=== PATIENT | male | born 1965 | race African-American/Black ===

== ENCOUNTER 2016-06-06 11:35 | Emergency (ER) | payer BC, OTHER ==
--- NOTE | 2016-06-06 11:46 | ER Document Report ---
ED Medical Screen (RME) - General Stated Complaint: ABNORMAL LABS Mode of Arrival: Ambulatory Information source: Patient Notes: Patient's primary doctor sent him here due to abnormal PT/INR level. Patient does take Coumadin. Patient states his INR was 8. Patient does report some bleeding from his gingiva. hx: a fib TRAVEL OUTSIDE OF THE [place] IN LAST 30 DAYS: No - Related Data Allergies/Adverse Reactions: No Known Allergies Allergy (Verified 06/06/16 11:43) Past Medical History - Past Medical History Cardiac Medical History: Reports: Hx Atrial Fibrillation, Hx Congestive Heart Failure, Hx Hypercholesterolemia, Hx Hypertension Pulmonary Medical History: Denies: Hx Tuberculosis Psychiatric Medical History: Denies: Hx Depression Past Surgical History: Reports: Hx Internal Defibrillator, Hx Pacemaker - Immunizations Hx Diphtheria, Pertussis, Tetanus Vaccination: No Physical Exam - HEENT Teeth diagram: 1 - active bleeding
[2016-06-06 12:17] LABS: ABSOLUTE BASOPHILS # (AUTO) 0.1 10^3/uL (0.0-0.2); ABSOLUTE EOSINOPHILS # (AUTO) 0.3 10^3/uL (0.0-0.6); ABSOLUTE LYMPHOCYTES (AUTO) 0.8 10^3/uL (0.5-4.7); ABSOLUTE MONOCYTES (AUTO) 1.1 10^3/uL (0.1-1.4); ABSOLUTE NEUT (AUTO) 5.7 10^3/uL (1.7-8.2); BASOPHILS % (AUTO) 1.1 % (0-2); EOSINOPHILS % (AUTO) 3.3 % (0-6); HEMATOCRIT 38.6 % (37.9-51.0); HEMOGLOBIN 12.7 g/dL (13.5-17.0); HGB HCT DIFFERENCE -0.5; LYMPHOCYTES % (AUTO) 10.6 % (13-45); MEAN CORPUSCULAR HEMOGLOBIN 23.5 pg (27.0-33.4); MEAN CORPUSCULAR HGB CONC 32.9 g/dL (32.0-36.0); MEAN CORPUSCULAR VOLUME 71 fl (80-97); MONOCYTES % (AUTO) 13.2 % (3-13); RED BLOOD COUNT 5.41 10^6/uL (4.35-5.55); RED CELL DISTRIBUTION WIDTH 32.7 % (11.5-14.0); SEGMENTED NEUTROPHILS % (AUTO) 71.8 % (42-78); WHITE BLOOD COUNT 7.9 10^3/uL (4.0-10.5)
[2016-06-06] MEDS ORDERED: TRANEXAMIC ACID INJ/PF 1,000 MG/10 ML SDV IV ONE (12:28)
[2016-06-06 12:37] LABS: ALANINE AMINOTRANSFERASE 54 U/L (21-72); ALBUMIN 4.8 g/dL (3.5-5.0); ALKALINE PHOSPHATASE 79 U/L (38-126); ASPARTATE AMINO TRANSFERASE 50 U/L (17-59); BILIRUBIN,TOTAL 0.8 mg/dL (0.2-1.3); CALCIUM 9.8 mg/dL (8.4-10.2); GLUCOSE 123 mg/dL (75-110); TOTAL PROTEIN 8.5 g/dL (6.3-8.2)
[2016-06-06 12:48] LABS: BLOOD UREA NITROGEN 136 mg/dL (7-20)
[2016-06-06 12:53] LABS: ACANTHOCYTES SLIGHT; ANISOCYTOSIS 4+; HYPOCHROMASIA 1+; MICROCYTOSIS 2+; OVALOCYTES 2+; POIKILOCYTOSIS 3+; SCHISTOCYTES 1+; TEAR DROP CELLS SLIGHT; TOXIC GRANULATION SLIGHT; TOXIC VACUOLATION PRESENT
[2016-06-06 12:55] LABS: CARBON DIOXIDE 22 mmol/L (22-30); CHLORIDE 94 mmol/L (98-107); POTASSIUM 3.8 mmol/L (3.6-5.0); SODIUM 135.9 mmol/L (137-145)
[2016-06-06 13:00] LABS: PROTHROMBIN TIME 69.5 SEC (11.4-15.4)
[2016-06-06 13:02] LABS: ANION GAP 20 (5-19)
--- NOTE | 2016-06-06 13:26 | ER Document Report ---
ED General - General Chief Complaint: Abnormal Lab Results Stated Complaint: ABNORMAL LABS Mode of Arrival: Ambulatory Notes: The patient is a 50-year-old male, past medical history ABen umaña (on Coumadin), AICD, presents from his kitchen stewardess office after he was found to have gingival bleeding and an INR of 8. His kitchen stewardess, Dr. Bear, told him to not take his Coumadin until he sees him in 3 days in the clinic. He is taking his Coumadin as prescribed. He denies any blood in stool, melena, hematemesis, lightheadedness, chest pain, shortness of breath, nausea or vomiting. TRAVEL OUTSIDE OF THE [place] IN LAST 30 DAYS: No - Related Data Allergies/Adverse Reactions: No Known Allergies Allergy (Verified 06/06/16 11:43) Past Medical History - General Information source: Patient - Social History Smoking Status: Never Smoker Chew tobacco use (# tins/day): No Frequency of alcohol use: None Drug Abuse: None Family History: CAD - In mother and grandmother in their 60s Patient has suicidal ideation: No Patient has homicidal ideation: No - Past Medical History Cardiac Medical History: Reports: Hx Atrial Fibrillation, Hx Congestive Heart Failure, Hx Hypercholesterolemia, Hx Hypertension Pulmonary Medical History: Denies: Hx Tuberculosis Renal/ Medical History: Denies: Hx Peritoneal Dialysis Psychiatric Medical History: Denies: Hx Depression Past Surgical History: Reports: Hx Internal Defibrillator, Hx Pacemaker - Immunizations Hx Diphtheria, Pertussis, Tetanus Vaccination: No Review of Systems - Review of Systems Notes: REVIEW OF SYSTEMS: CONSTITUTIONAL: -fevers, -chills EENT: +gingival bleeding, -eye pain, -difficulty swallowing, -nasal congestion CARDIOVASCULAR:-chest pain, -syncope. RESPIRATORY: -cough, -SOB GASTROINTESTINAL: -abdominal pain, - nausea, -vomiting, -diarrhea, -hematemesis , -melana, -hematochezia GENITOURINARY: -dysuria, -hematuria MUSCULOSKELETAL: -back pain, -neck pain SKIN: -rash or skin lesions. HEMATOLOGIC: -easy bruising or bleeding. LYMPHATIC: -swollen, enlarged glands. NEUROLOGICAL: -altered mental status or loss of consciousness, -headache, - neurologic symptoms PSYCHIATRIC: -anxiety, -depression. ALL OTHER SYSTEMS REVIEWED AND NEGATIVE. Physical Exam - Vital signs Vitals: Temp Pulse Resp BP Pulse Ox 97.8 F 77 18 105/79 99 06/06/16 11:45 06/06/16 11:45 06/06/16 11:45 06/06/16 11:45 06/06/16 11:45 - Notes Notes: PHYSICAL EXAMINATION: GENERAL: Well-appearing, well-nourished and in no acute distress. HEAD: Atraumatic, normocephalic. EYES: Pupils equal round and reactive to light, extraocular movements intact, sclera anicteric, conjunctiva are normal. ENT: oozing out of gingiva from back upper molars, nares patent, oropharynx clear without exudates. Moist mucous membranes. NECK: Normal range of motion, supple without lymphadenopathy LUNGS: Breath sounds clear to auscultation bilaterally and equal. No wheezes rales or rhonchi. HEART: Regular rate and rhythm without murmurs ABDOMEN: Soft, nontender, normoactive bowel sounds. No guarding, no rebound. No masses appreciated. EXTREMITIES: Normal range of motion, no pitting or edema. No cyanosis. NEUROLOGICAL: Cranial nerves grossly intact. Normal speech, normal gait. Normal sensory, motor, and reflex exams. PSYCH: Normal mood, normal affect. SKIN: Warm, Dry, normal turgor, no rashes or lesions noted. Course - Re-evaluation Re-evalutation: Patient has no signs of GI bleeding at this time, including the absence of melena or hematochezia. Hemoglobin is normal. INR is 7.8. He is hemodynamically stable at this time. Gingiva bleeding stopped with topical TXA and teabag. No indication for emergent reversal at this time. Instructed patient to hold his Coumadin doses for 3 days and follow-up with his kitchen stewardess, Dr. Bear, as instructed. 06/06/16 14:[address] Schroeder and he is requesting Vitamin K. [employer] guidelines recommend holding Coumadin and restarting at a lower dose once INR is therapeutic for INR between 5-9 and no significant bleeding.. Oral Vitamin K 1-2.5 mg may be considered. Since the patient's PMD is requesting vitamin K, will provide a dose of oral vitamin K and follow-up at his kitchen stewardess and primary care physician. - Vital Signs Vital signs: Temp Pulse Resp BP Pulse Ox 97.8 F 77 18 105/79 99 02/24/17 11:45 06/06/16 11:45 06/06/16 11:45 06/06/16 11:45 06/06/16 11:45 - Laboratory Result Diagrams: 06/06/16 12:00 06/06/16 12:00 Laboratory results interpreted by me: 06/06/16 06/06/16 06/06/16 12:00 12:00 12:00 Hgb 12.7 L MCV 71 L MCH 23.5 L RDW 32.7 H Lymphocytes % 10.6 L Monocytes % 13.2 H PT 69.5 H* INR 7.75 H* Sodium 135.9 L Chloride 94 L Anion Gap 20 H BUN 136 H Creatinine 3.40 H Est GFR ( Amer) 23 L Est GFR (Non-Af Amer) 19 L Glucose 123 H Total Protein 8.5 H Discharge - Discharge Clinical Impression: Gingival bleeding, Elevated INR Condition: Stable Disposition: HOME, SELF-CARE Additional Instructions: Do not take Coumadin until you're seen by your kitchen stewardess on Thursday. Return to the ER if you notice increased bleeding from her gums or you have any signs of GI bleed, including red or black stool. Referrals: RUFINO AL MD [Primary Care Provider] - Follow up as needed
[2016-06-06] MEDS ORDERED: PHYTONADIONE 5 MG TABLET PO ONE (14:13)
[2016-06-06 15:55] VITALS: BP 106/75
== END 2016-06-06 15:53 | disposition home or self-care (01) ==
LOC: ER 11:35
DX: K06.8 Other specified disorders of gingiva and edentulous alveolar ridge (principal); I48.91 Unspecified atrial fibrillation; Z79.01 Long term (current) use of anticoagulants; Z95.810 Presence of automatic (implantable) cardiac defibrillator; I10 Essential (primary) hypertension
CPT/HCPCS: 99283; 96374; 36415; 85025; 85610; 80053; J3490 ×2

== ENCOUNTER 2016-12-22 08:10 | Emergency (ER) | payer OTHER, MEDICAID ==
--- NOTE | 2016-12-22 09:20 | ER Document Report ---
ED General - General Chief Complaint: Leg Swelling Stated Complaint: LEFT LEG PAIN Time Seen by Provider: 12/22/16 09:07 TRAVEL OUTSIDE OF THE [place] IN LAST 30 DAYS: No - HPI Notes: This is a 51-year-old male with history of congestive heart failure who presents with multiple complaints worsening over the last 6 days. He states he has exacerbations of his CHF about every 6 months with the last one being treated at [facility], they had stopped his metolazone and his carvedilol. He has noticed increased swelling of his legs with a weight gain of 10-12 pounds over the last few weeks. Denies dietary change. He has been taking his Lasix 60 mg daily. He is noticing fairly severe fatigue as well as shortness of breath particularly with exertion. He is not having any noticeable chest discomfort. Denies fever cough or cold symptoms otherwise. He sees Dr. Bear, his summer law associate from [facility]. He has an appointment in 2 days but symptoms have worsened too much. - Related Data Allergies/Adverse Reactions: No Known Allergies Allergy (Verified 12/22/16 08:17) Home Medications: Current Home Medications Amiodarone HCl [Cordarone 200 mg Tablet] 200 mg PO DAILY 12/22/16 [History] Furosemide [Lasix 40 mg Tablet] 60 mg PO QAM 12/22/16 [History] Mag Oxide/D3/Turmeric Rt Xt [Magnesium-Vit D3-Turmeric Cap] 400 mg PO DAILY 02/27 [History] Simvastatin [Simvastatin] 20 mg PO DAILY 12/22/16 [History] Warfarin Sodium [Warfarin Sodium] 3 mg PO DAILY 12/22/16 [History] Past Medical History - Social History Smoking Status: Never Smoker Chew tobacco use (# tins/day): No Frequency of alcohol use: None Drug Abuse: None Family History: CAD - In mother and grandmother in their 60s - Past Medical History Cardiac Medical History: Reports: Hx Atrial Fibrillation, Hx Congestive Heart Failure, Hx Hypercholesterolemia, Hx Hypertension Pulmonary Medical History: Denies: Hx Tuberculosis Renal/ Medical History: Denies: Hx Peritoneal Dialysis Psychiatric Medical History: Denies: Hx Depression Past Surgical History: Reports: Hx Abdominal Surgery - colon polyp removal, Hx Cardiac Catheterization, Hx Internal Defibrillator, Hx Pacemaker - Immunizations Hx Diphtheria, Pertussis, Tetanus Vaccination: No Review of Systems - Review of Systems -: Yes All other systems reviewed and negative Physical Exam - Vital signs Vitals: Temp Pulse Resp BP Pulse Ox 97.6 F 82 16 92/68 L 97 12/22/16 08:11 12/22/16 08:11 12/22/16 08:11 12/22/16 08:11 12/22/16 08:11 Notes: See nurse's note, hypotension noted. - Notes Notes: Physical Exam: GENERAL: VS as per nursing doc. Well-appearing, well-nourished and in no acute distress. HEAD: Atraumatic, normocephalic. EYES: Pupils equal round and reactive to light, extraocular movements intact, sclera anicteric, no conjunctival injection or discharge. ENT: Nares patent, oropharynx clear without exudates. Moist mucous membranes. NECK: Normal range of motion, supple without lymphadenopathy. LUNGS: Breath sounds clear to auscultation bilaterally and equal. No wheezes rales or rhonchi. HEART: Regular rate and rhythm with 3/6 systolic murmur. Equal peripheral pulses. ABDOMEN: Soft, non-tender. No pulsatile mass. EXTREMITIES: Normal range of motion. No calf tenderness. 3+ edema bilaterally. NEUROLOGICAL: Cranial nerves grossly intact. Normal speech. Normal sensory and motor exams. No gross cerebellar abnormalities. PSYCH: Normal mood, normal affect. SKIN: Warm, dry, no cyanosis, no splinter hemorrhages. Cap refill < 2 sec. Course - Re-evaluation Re-evalutation: 12/22/16 10:48 Awaiting the PT/INR which was drawn as it was abnormally high. Creatinine 3.21 appears reasonably good when compared to his creatinine of 3.4 earlier in the year. Chest x-ray showed pulmonary vascular congestion but no yaya CHF. 12/22/16 12:[address] Bear. He will see the patient in 2 days and will discuss with him when to reinitiate the Coumadin. As well we will increase his Lasix from 60 mg to 80 mg daily. Discussed this with patient and he is comfortable with this and knows warning signs to watch for. - Vital Signs Vital signs: Temp Pulse Resp BP Pulse Ox 98.2 F 82 17 96/74 L 97 12/22/16 10:14 12/22/16 08:11 12/22/16 12:13 12/22/16 12:13 12/22/16 12:13 - Laboratory Result Diagrams: 12/22/16 08:29 12/22/16 08:29 Laboratory results interpreted by me: 12/22/16 12/22/16 12/22/16 08:29 08:29 08:29 Hgb 10.0 L Hct 32.5 L MCV 74 L MCH 22.9 L MCHC 30.9 L RDW 19.9 H Lymphocytes % (Manual) 11 L PT INR Sodium 135.7 L Carbon Dioxide 20 L BUN 107 H Creatinine 3.21 H Est GFR ( Amer) 25 L Est GFR (Non-Af Amer) 20 L Glucose 111 H Total Bilirubin 2.2 H Direct Bilirubin 1.4 H NT-Pro-B Natriuret Pep [id number] H 12/22/16 10:25 Hgb Hct MCV MCH MCHC RDW Lymphocytes % (Manual) PT 60.0 H* INR 6.60 H* Sodium Carbon Dioxide BUN Creatinine Est GFR ( Amer) Est GFR (Non-Af Amer) Glucose Total Bilirubin Direct Bilirubin NT-Pro-B Natriuret Pep - EKG Interpretation by Me Additional EKG results interpreted by me: 12/22/16 11:23 EKG shows an AV dual paced rhythm rate of 74. Nonspecific ST abnormalities. Probable left atrial enlargement. Discharge - Discharge Clinical Impression: Congestive heart failure, Coumadin coagulopathy Condition: Fair Disposition: HOME, SELF-CARE Additional Instructions: Stop your Coumadin. Discuss with Dr. Bear on Thursday when to start it back. Increase your Lasix from 1-1/2 to 2 pills daily which is 80 mg. Return if you are worsening or for other concern. Referrals: SELINA BEAR MD [[facility]] - 12/24/16
[2016-12-22 09:40] LABS: ALANINE AMINOTRANSFERASE 69 U/L (21-72); ALBUMIN 4.1 g/dL (3.5-5.0); ALKALINE PHOSPHATASE 109 U/L (38-126); ANION GAP 16 (5-19); ASPARTATE AMINO TRANSFERASE 48 U/L (17-59); BILIRUBIN,DIRECT 1.4 mg/dL (0.0-0.4); BILIRUBIN,TOTAL 2.2 mg/dL (0.2-1.3); BLOOD UREA NITROGEN 107 mg/dL (7-20); CALCIUM 9.3 mg/dL (8.4-10.2); CARBON DIOXIDE 20 mmol/L (22-30); CHLORIDE 100 mmol/L (98-107); GLUCOSE 111 mg/dL (75-110); SODIUM 135.7 mmol/L (137-145); TOTAL PROTEIN 7.3 g/dL (6.3-8.2)
[2016-12-22 09:41] LABS: HEMATOCRIT 32.5 % (37.9-51.0); HGB HCT DIFFERENCE -2.5; MEAN CORPUSCULAR HEMOGLOBIN 22.9 pg (27.0-33.4); MEAN CORPUSCULAR HGB CONC 30.9 g/dL (32.0-36.0); MEAN CORPUSCULAR VOLUME 74 fl (80-97); RED BLOOD COUNT 4.38 10^6/uL (4.35-5.55); RED CELL DISTRIBUTION WIDTH 19.9 % (11.5-14.0); WHITE BLOOD COUNT 5.2 10^3/uL (4.0-10.5)
[2016-12-22 09:46] LABS: CREATININE RESULT 3.21 mg/dL (0.52-1.25)
[2016-12-22 10:14] LABS: BASOPHILS % (MANUAL) 0 % (0-2); EOSINOPHILS % (MANUAL) 1 % (0-6); LYMPHOCYTES % (MANUAL) 11 % (13-45); TOTAL CELLS COUNTED 100
[2016-12-22 10:16] LABS: ANISOCYTOSIS 2+; BURR CELLS SLIGHT; HYPOCHROMASIA 1+; MICROCYTOSIS 1+; OVALOCYTES 1+; POIKILOCYTOSIS 1+; POLYCHROMASIA 1+; ROULEAUX 1+
[2016-12-22 10:19] LABS: NUCLEATED RED BLOOD CELLS 21 /100 WBC (0)
--- NOTE | 2016-12-22 10:22 | RADIOLOGY REPORT (SQ) ---
EXAM DESCRIPTION: CHEST PA/LAT COMPLETED DATE/TIME: 12/22/2016 10:11 am REASON FOR STUDY: Dyspnea COMPARISON: 09/24/2015 EXAM PARAMETERS: NUMBER OF VIEWS: two views TECHNIQUE: Digital Frontal and Lateral radiographic views of the chest acquired. RADIATION DOSE: NA LIMITATIONS: none FINDINGS: LUNGS AND PLEURA: Pulmonary vascular congestion without yaya pulmonary edema. No localiz ed infiltrate. No pleural effusion. No mass. MEDIASTINUM AND HILAR STRUCTURES: No masses or contour abnormalities. HEART AND VASCULAR STRUCTURES: Cardiomegaly with pulmonary vascular congestion. BONES: No acute findings. HARDWARE: Pacemaker/ defibrillator. OTHER: No other significant finding. IMPRESSION: Cardiomegaly with pulmonary vascular congestion but no yaya CHF. TECHNICAL DOCUMENTATION: JOB ID: [id number] [employer]- All Rights Reserved
[2016-12-22] MEDS ORDERED: FUROSEMIDE INJ/PF 20 MG/2 ML SDV IV ONE (10:51)
[2016-12-22 13:16] VITALS: BP 91/72
--- NOTE | 2016-12-22 20:45 | EKG REPORT ---
SEVERITY:- ABNORMAL ECG - SINUS RHYTHM, PACEMAKER SPIKE ARTIFACTS VS MALFUNCTION FIRST DEGREE AV BLOCK NONSPECIFIC INTRAVENTRICULAR CONDUCTION DELAY NONSPECIFIC ST DEPRESSION : Confirmed by: Sherita Dockery 22-Dec-2016 20:44:28
--- NOTE | 2016-12-22 20:47 | EKG REPORT ---
SEVERITY:- ABNORMAL ECG - SINUS RHYTHM WITH PACING ARTIFACTS VS ATRIAL SENSING MALFUNCTION IVCD : Confirmed by: Sherita Dockery 22-Dec-2016 20:46:32
[2016-12-23 13:57] LABS: TROPONIN I 0.098 ng/mL
[2016-12-23 15:07] LABS: PATH REVIEW PATHOLOGIST REVIEWED
== END 2016-12-22 13:16 | disposition home or self-care (01) ==
LOC: ER 08:10
DX: I50.9 Heart failure, unspecified (principal); M79.89 Other specified soft tissue disorders; M79.605 Pain in left leg; Z79.899 Other long term (current) drug therapy; Z79.01 Long term (current) use of anticoagulants
CPT/HCPCS: 93005; 99284; 36415; 85025; 85610; 80053; 84484; 83880; 71020; 93010; J1940

== ENCOUNTER 2016-12-25 23:07 | Emergency (ER) | payer OTHER, MEDICAID ==
[2016-12-26] MEDS ORDERED: NITROGLYCERIN/D5W 50 MG/250 ML RTUINJ IV PRN (00:28)
[2016-12-26] MEDS ORDERED: FUROSEMIDE INJ/PF 20 MG/2 ML SDV IV ONE (00:30)
[2016-12-26 01:53] LABS: ALANINE AMINOTRANSFERASE 79 U/L (21-72); ALKALINE PHOSPHATASE 115 U/L (38-126); ASPARTATE AMINO TRANSFERASE 96 U/L (17-59); BILIRUBIN,DIRECT 1.7 mg/dL (0.0-0.4); BILIRUBIN,TOTAL 2.6 mg/dL (0.2-1.3); BLOOD UREA NITROGEN 116 mg/dL (7-20); CALCIUM 9.4 mg/dL (8.4-10.2); CARBON DIOXIDE 14 mmol/L (22-30); CHLORIDE 97 mmol/L (98-107); CREATINE KINASE 92 U/L (55-170); CREATININE RESULT 3.64 mg/dL (0.52-1.25); GLUCOSE 124 mg/dL (75-110); POTASSIUM 4.5 mmol/L (3.6-5.0); SODIUM 132.6 mmol/L (137-145); TOTAL PROTEIN 7.3 g/dL (6.3-8.2)
[2016-12-26 01:59] LABS: HEMATOCRIT 30.3 % (37.9-51.0); HEMOGLOBIN 9.6 g/dL (13.5-17.0); HGB HCT DIFFERENCE -1.5; MEAN CORPUSCULAR HEMOGLOBIN 22.7 pg (27.0-33.4); MEAN CORPUSCULAR HGB CONC 31.8 g/dL (32.0-36.0); MEAN CORPUSCULAR VOLUME 71 fl (80-97); RED BLOOD COUNT 4.25 10^6/uL (4.35-5.55); RED CELL DISTRIBUTION WIDTH 20.3 % (11.5-14.0); WHITE BLOOD COUNT 6.2 10^3/uL (4.0-10.5)
[2016-12-26 02:06] LABS: CREATINE KINASE MB 2.12 ng/mL (<4.55)
--- NOTE | 2016-12-26 02:06 | RADIOLOGY REPORT (SQ) ---
EXAM DESCRIPTION: CHEST SINGLE VIEW COMPLETED DATE/TIME: 12/26/2016 1:29 am REASON FOR STUDY: dyspnea COMPARISON: 12/22/2016. EXAM PARAMETERS: NUMBER OF VIEWS: One view. TECHNIQUE: Single frontal radiographic view of the chest acquired. RADIATION DOSE: NA LIMITATIONS: None. FINDINGS: LUNGS AND PLEURA: Pulmonary vascular congestion. MEDIASTINUM AND HILAR STRUCTURES: No masses. Contour normal. HEART AND VASCULAR STRUCTURES: Severe enlargement of the cardiac silhouette. BONES: No acute findings. HARDWARE: Left cardiac stimulation device and leads. OTHER: No other significant finding. IMPRESSION: No significant interval change. Cardiac enlargement and pulmonary vascular congestion. TECHNICAL DOCUMENTATION: JOB ID: [id number]
[2016-12-26 02:10] LABS: TROPONIN I 0.12 ng/mL
[2016-12-26 02:19] LABS: BAND NEUTROPHILS % (MANUAL) 1 % (3-5); BASOPHILS % (MANUAL) 0 % (0-2); EOSINOPHILS % (MANUAL) 0 % (0-6); LYMPHOCYTES % (MANUAL) 9 % (13-45); NUCLEATED RED BLOOD CELLS 12 /100 WBC (0); TOTAL CELLS COUNTED 100
[2016-12-26 02:20] LABS: POLYCHROMASIA SLIGHT; TOXIC GRANULATION 1+; TOXIC VACUOLATION PRESENT
[2016-12-26 02:21] LABS: ANISOCYTOSIS 2+; BURR CELLS SLIGHT; HYPOCHROMASIA SLIGHT; MICROCYTOSIS 1+; OVALOCYTES SLIGHT; POIKILOCYTOSIS SLIGHT; SCHISTOCYTES SLIGHT; TEAR DROP CELLS SLIGHT
[2016-12-26 02:26] LABS: ANION GAP 22 (5-19)
[2016-12-26] MEDS ORDERED: FUROSEMIDE INJ/PF 40 MG/4 ML SDV IV ONE (03:14)
[2016-12-26] MEDS ORDERED: DEXTROSE 5%-WATER 250 ML with NOREPINEPHRINE BITARTRATE 4 MG IV PRN ×2 (03:48)
--- NOTE | 2016-12-26 03:52 | ER Document Report ---
ED General - General Chief Complaint: Shortness Of Breath Stated Complaint: SHORTNESS OF BREATH Time Seen by Provider: 12/26/16 00:28 Notes: Patient is a 51-year-old male who presents with large amount of edema in his legs, difficulty breathing, and just feeling very weak and unwell. He says he has been gradually worsening over the course of a week. He saw his peanut vendor , Dr. Bear yesterday. He says he actually saw that nurse practitioner for Dr. Bear. He says they increased his Lasix to 120 mg. He says he has only got worse and now he feels very unwell and therefore is come to the ER. He has a history of nonischemic cardiac myopathy. He was seen at [facility] approximately 6 weeks ago and had a right-sided heart cath performed. He has a dual-chamber AICD. Denies any chest pain at this time. TRAVEL OUTSIDE OF THE [place] IN LAST 30 DAYS: No - Related Data Allergies/Adverse Reactions: No Known Allergies Allergy (Verified 12/22/16 08:17) Past Medical History - Social History Smoking Status: Never Smoker Frequency of alcohol use: None Drug Abuse: None Family History: CAD - In mother and grandmother in their 60s Patient has suicidal ideation: No Patient has homicidal ideation: No - Past Medical History Cardiac Medical History: Reports: Hx Atrial Fibrillation, Hx Congestive Heart Failure, Hx Hypercholesterolemia, Hx Hypertension Pulmonary Medical History: Denies: Hx Tuberculosis Renal/ Medical History: Denies: Hx Peritoneal Dialysis Psychiatric Medical History: Denies: Hx Depression Past Surgical History: Reports: Hx Abdominal Surgery - colon polyp removal, Hx Cardiac Catheterization, Hx Internal Defibrillator, Hx Pacemaker - Immunizations Hx Diphtheria, Pertussis, Tetanus Vaccination: No Review of Systems - Review of Systems Notes: My Normal Review Basic REVIEW OF SYSTEMS: CONSTITUTIONAL : Denies fever, chills, or sweats. Denies recent illness. EENT: Denies eye, ear, throat, or mouth pain or symptoms. Denies nasal or sinus congestion. CARDIOVASCULAR: Some chest pressure. RESPIRATORY: Difficulty breathing. GASTROINTESTINAL: Denies abdominal pain. Denies nausea, vomiting, or diarrhea. Denies constipation. Last BM: MUSCULOSKELETAL: lower extremity edema. SKIN: Denies rash or skin lesions. NEUROLOGICAL: Denies altered mental status or loss of consciousness. Denies headache. Denies weakness or paralysis or loss of use of either side. Denies problems with gait or speech. Denies sensory or motor loss. ALL OTHER SYSTEMS REVIEWED AND NEGATIVE. Physical Exam - Vital signs Vitals: Temp Pulse Resp BP Pulse Ox 97.5 F 115 H 20 98/73 L 98 12/26/16 00:03 12/26/16 00:03 12/26/16 00:03 12/26/16 00:03 12/26/16 00:03 - Notes Notes: General Appearance: Well nourished, alert, cooperative, mild to moderate acute distress, no obvious discomfort. unwell-appearing Vitals: reviewed, See vital signs table. Head: no swelling or tenderness to the head Eyes: PERRL, EOMI, Conjuctiva clear Mouth: No decreasd moisture Lungs: No wheezing, No rales, No rhonci, No accessory muscle use, good air exchange bilaterally. Heart: Normal rate, Regular rythm, No murmur, no rub Abdomen: Normal BS, soft, No rigidity, No abdominal tenderness, No guarding, no rebound, no abdominal masses, no organomegaly Extremities: strength 5/5 in all extremities, good pulses in all extremities, no swelling or tenderness in the extremities, patient has a large amount of edema in both lower extremities. It is to the point with the skin is tight from all the edema. Skin: warm, dry, appropriate color, no rash Neuro: speech clear, oriented x 3, normal affect, responds appropriately to questions. Course - Re-evaluation Re-evalutation: 12/26/16 05:43 I initially spoke to her hospitalist here who requested that I speak with her peanut vendor being that the patient is in cardiogenic shock. I did speak with Dr. Lam her peanut vendor. Dr. florence that he is very ill and will be unable to come to the hospital to help care for this patient requests that we transfer the patient out. Also is concerned that the patient's troponin is higher than his baseline. I therefore called [facility] being that is where his peanut vendor is. I did speak with Dr. Crow who agrees to accept the patient. I have placed the patient on Levophed because of his hypotension and probable cardiogenic shock. I will not place a central line at this time being that his INR is still greater than 5. He apparently received vitamin K yesterday. Dictation of this chart was performed using voice recognition software; therefore, there may be some unintended grammatical errors. - Vital Signs Vital signs: Temp Pulse Resp BP Pulse Ox 98.6 F 115 H 18 103/84 97 12/26/16 01:32 12/26/16 00:03 12/26/16 05:35 12/26/16 05:35 12/26/16 05:34 - Laboratory Result Diagrams: 12/26/16 01:24 12/26/16 01:24 Laboratory results interpreted by me: 12/26/16 12/26/16 12/26/16 01:24 01:24 01:24 RBC 4.25 L Hgb 9.6 L Hct 30.3 L MCV 71 L MCH 22.7 L MCHC 31.8 L RDW 20.3 H Seg Neuts % (Manual) 79 H Band Neutrophils % 1 L Lymphocytes % (Manual) 9 L PT INR Sodium 132.6 L Chloride 97 L Carbon Dioxide 14 L Anion Gap 22 H BUN 116 H Creatinine 3.64 H Est GFR ( Amer) 21 L Est GFR (Non-Af Amer) 18 L Glucose 124 H Total Bilirubin 2.6 H Direct Bilirubin 1.7 H AST 96 H ALT 79 H NT-Pro-B Natriuret Pep [id number] H 12/26/16 01:24 RBC Hgb Hct MCV MCH MCHC RDW Seg Neuts % (Manual) Band Neutrophils % Lymphocytes % (Manual) PT 51.3 H* INR 5.38 H* Sodium Chloride Carbon Dioxide Anion Gap BUN Creatinine Est GFR ( Amer) Est GFR (Non-Af Amer) Glucose Total Bilirubin Direct Bilirubin AST ALT NT-Pro-B Natriuret Pep Discharge - Discharge Clinical Impression: Cardiogenic shock Congestive heart failure Qualifiers: Congestive heart failure type: systolic Congestive heart failure chronicity: acute on chronic Qualified Code(s): I50.23 - Acute on chronic systolic ( congestive) heart failure Condition: Stable Disposition: [facility]
[2016-12-26 03:56] LABS: PROTHROMBIN TIME 51.3 SEC (11.4-15.4)
[2016-12-26] MEDS ORDERED: NOREPINEPHRINE BITARTRATE INJ/PF 4 MG/4 ML SDV IV ONE (04:03)
[2016-12-26] MEDS ORDERED: ONDANSETRON HCL INJ/PF 4 MG/2 ML SDV IV ONE ×2 (04:19→06:03)
[2016-12-26] MEDS ORDERED: ONDANSETRON HCL INJ/PF 4 MG/2 ML SDV ONE (04:23)
--- NOTE | 2016-12-26 08:00 | ER Document Report ---
Doctor's Note Notes: 12/26/16 08:00 Patient has been reevaluated, he is stable at this time, he is noted to be on room air satting 93% at this time,
--- NOTE | 2016-12-26 08:05 | EKG REPORT ---
SEVERITY:- ABNORMAL ECG - ATRIAL-VENTRICULAR DUAL-PACED RHYTHM : Confirmed by: Sherita Dockery 26-Dec-2016 08:05:17
--- NOTE | 2016-12-26 08:05 | EKG REPORT ---
SEVERITY:- ABNORMAL ECG - ATRIAL-VENTRICULAR DUAL-PACED COMPLEXES NONSPECIFIC INTRAVENTRICULAR CONDUCTION DELAY CONSIDER LEFT VENTRICULAR HYPERTROPHY : Confirmed by: Sherita Dockery 26-Dec-2016 08:05:06
[2016-12-26 08:42] VITALS: BP 123/65
== END 2016-12-26 08:24 | disposition short-term general hospital (02) ==
LOC: ER 23:07
DX: R57.0 Cardiogenic shock (principal); I50.23 Acute on chronic systolic (congestive) heart failure; R06.02 Shortness of breath; R60.9 Edema, unspecified; R06.00 Dyspnea, unspecified; I48.91 Unspecified atrial fibrillation; E78.00 Pure hypercholesterolemia, unspecified; I11.0 Hypertensive heart disease with heart failure; Z95.810 Presence of automatic (implantable) cardiac defibrillator
CPT/HCPCS: 93005; 96376; 99291; 96375; 96365; 96366; 36415; 82553; 82550; 85025; 85610; 80053; 84484; 83880; 71010; 93010; J1940; J3490; J2405; J7060